=== PATIENT | male | born 1955 | race Caucasian/White ===

== ENCOUNTER 2017-04-09 20:26 | Emergency (ER) | payer OTHER, SELFPAY ==
[2017-04-09] MEDS ORDERED: Bacitracin Zinc 1 Packet ONE (20:48)
[2017-04-09] MEDS ORDERED: Adacel (T-DAP) 0.5 ML VIAL ONE (20:48)
[2017-04-09] MEDS ORDERED: Sulfameth/Trimethoprim DS 800-160mg TAB ONE (20:58)
== END 2017-04-09 21:17 | disposition home or self-care (01) ==
LOC: BURERS 20:26
DX: S60.450A Superficial foreign body of right index finger, initial encounter (principal); W45.8XXA Other foreign body or object entering through skin, initial encounter
CPT/HCPCS: 10120; 90471; 90715